=== PATIENT | female | born 1955 | race Caucasian/White ===

== ENCOUNTER 2025-02-20 18:44 | Emergency (ER) | payer MEDICARE ==
[~2025-02-20] VITALS: Ht 160 cm; Wt 58.1 kg
[2025-02-20] MEDS ORDERED: ACET500 PO (20:29)
[2025-02-20] MEDS ORDERED: Prozac20 MG PO (20:30)
[2025-02-20] MEDS ORDERED: IBUP800 PO (20:30)
[2025-02-20] MEDS ORDERED: Carisoprodol350 MG PO (20:30)
[2025-02-20] MEDS ORDERED: SYMBICORT 80-10.2 GM INH (20:32)
== END 2025-02-20 21:27 | disposition home or self-care (01) ==
LOC: ER 18:44
DX: S81.811A Laceration without foreign body, right lower leg, initial encounter (principal); Z88.6 Allergy status to analgesic agent; Z79.51 Long term (current) use of inhaled steroids; Z79.899 Other long term (current) drug therapy; W10.9XXA Fall (on) (from) unspecified stairs and steps, initial encounter
CPT/HCPCS: 12004; 73590; 90471; 90715; 99283-25